=== PATIENT | female | born 1985 | race African-American/Black ===

== ENCOUNTER 2019-07-03 09:35 | Outpatient (CLI) | payer BC, SELFPAY ==
--- NOTE | ~2019-07-03 | US_ITS ---
EXAMINATION: US OB <= 14 weeks fetus, US OB <= 14 wk fetus add gest DATE: 07/03/2019 10:05 INDICATION: First trimester dating TECHNIQUE: Real-time pelvic transabdominal and transvaginal ultrasound was performed. COMPARISON: None. FINDINGS: The uterus measures 12.6 x 8.1 x 8.9 cm. There are two intrauterine gestational sacs separ ated by a thick membrane. A yolk sac is identified in each gestational sac. There is no free fluid in the pelvis. Fetus A: heart motion is identified measuring 173 beats per minute (bpm) by M-mode Doppler. The crown rump length measures 1.8 cm , which correlates with an estimated gestational age of 8 we eks and 2 day(s) (+/-) 5 day(s). Fetus B: heart motion is identified measuring 171 beats per minute (bpm) by M-mode Doppler. The crown rump length measures 1.8 cm , which correlates with an estimated gestational age of 8 we eks and 2 day(s) (+/-) 5 day(s). IMPRESSION: 1. Findings consistent with live dichorionic, diamniotic intrauterine with an estimated ges tational age of 8 weeks and 2 day(s) (+/-) 5 day(s) and an estimated delivery date of 02/10/2020. Reviewed, dictated and finalized at location A. IMPRESSION: 1. Findings consistent with live dichorionic, diamniotic intrauterine with an estimated gestational age of 8 weeks and 2 day(s) (+/-) 5 day(s) and a n estimated delivery date of 02/10/2020.
== END 2019-07-03 09:36 ==
PROVIDERS: Visit Provider Obstetrics & Gynecology
DX: Z34.91 Encounter for supervision of normal pregnancy, unspecified, first trimester (principal); Z3A.08 8 weeks gestation of pregnancy
CPT/HCPCS: 76801; 76802

== ENCOUNTER 2019-08-20 11:44 | Outpatient (RCR) | payer BC, MEDICAID, SELFPAY ==
[2019-08-20 12:20] LABS: Basophils Percent Auto 0.4 % (0.2-1.2); Eosinophils Percent Auto 0.6 % (0-4.4); Hematocrit 31.4 % (37.0-47.0); Immature Granulocyte Absolute 0.03 K/mm3 (0.00-0.031); Immature Granulocyte Percent A 0.4 % (0-0.5); Lymphocytes Absolute Auto 1.47 K/mm3 (0.9-3.2); Lymphocytes Percent Auto 21.6 % (18.3-44.2); Mean Corpuscular Hemoglobin 33.2 pg (26-34); Mean Corpuscular Volume 94.9 fl (80-100); Mean Platelet Volume 10.1 fl (7.4-10.4); Monocytes Absolute Auto 0.6 K/mm3 (0.1-0.6); Monocytes Percent Auto 9.1 % (2.6-8.5); Neutrophils Absolute Auto 4.6 K/mm3 (1.3-6.7); Neutrophils Percent Auto 67.9 % (45.5-73.1); Platelet Count Result 201 k/mm3 (150-375); Red Blood Count 3.31 M/mm3 (4.2-5.4); Red Cell Distribution Width 12.7 % (11.5-14.5); White Blood Count 6.8 K/mm3 (4.5-10.0)
[2019-08-20 12:25] LABS: Hemoglobin A1C 4.4 % (<5.7)
[2019-08-20 13:01] LABS: Hepatitis B Surface Antigen Negative (Negative); Rubella IgG Antibody 20.8 IU/ML
[2019-08-20 13:09] LABS: HIV 1/2 Ab P24 Ag Result Negative (Negative)
[2019-08-20 13:15] LABS: Vitamin D 25 Hydroxy 23.6 ng/mL
[2019-08-21 10:00] LABS: Rapid Plasma Reagin Non-Reactive (NonReactive)
== END 2019-11-18 23:59 | disposition home or self-care (01) ==
LOC: ANHLAB 11:44
PROVIDERS: PCP Family Medicine; Visit Provider Obstetrics & Gynecology
DX: Z11.4 Encounter for screening for human immunodeficiency virus [HIV] (principal)
CPT/HCPCS: 36415; 82306; 83036; 85025; 86592; 86703; 86762; 87340; G0432

== ENCOUNTER 2019-09-18 11:48 | Outpatient (RCR) | payer BC, OTHER, SELFPAY | END 2019-12-17 23:59 | disposition home or self-care (01) | LOC: ANHLAB 11:48 | PROVIDERS: PCP Family Medicine; Visit Provider Obstetrics & Gynecology | DX: Z36.9 Encounter for antenatal screening, unspecified (principal) | CPT/HCPCS: 36415; 85461 ==

== ENCOUNTER 2020-01-18 17:29 | Inpatient (IN) | payer BC, OTHER, SELFPAY ==
[2020-01-18] VITALS (52 sets, daily range): BP systolic 80–142; BP diastolic 24–86; PULSE 75–125; TEMP 36.7–36.9; O2SAT 99–100; BMI 34.8
--- NOTE | 2020-01-18 18:16 | WPDANESEPP ---
Anes - Eval Pre Procedure Procedure: Labor epidural Date/Time: 01/18/20 18:16 Surgeon: Alley Pre Op Diagnosis: Abd pain with contractions Patient Data Age: 34 Gender: F Height: Weight: Last Vital Signs Pulse 108 H 01/18/20 18:01 BP 119/79 01/18/20 18:01 Allergies Allergy/AdvReac Type Severity Reaction Status Date / Time No Known Allergies Allergy Unverified 05/30/17 13:22 Home Medications Medication Instructions Recorded Confirmed Type PNV cmb#95-ferrous fumarate-FA 1 tablet PO DAILY 01/15/20 01/15/20 History [] docusate sodium [Colace] 100 mg PO DAILY 01/15/20 01/15/20 History ergocalciferol (vitamin D2) 1,250 mcg PO WEEKLY 01/15/20 01/15/20 History [Vitamin D2] ferrous sulfate [Iron (ferrous 325 mg PO DAILY 01/15/20 01/15/20 History sulfate)] valacyclovir [Valtrex] 500 mg PO DAILY 01/15/20 01/15/20 History Patient hx anesthesia problems: none Family hx anesthesia problems: none PMFSH Past Medical History Medical History (Updated 01/18/20 @ 18:18 by Gabriel Pendleton CRNA) Anemia Obesity and not yet delivered Family History Family History Father Diabetes mellitus Mother Hypertension Sibling Thyroid disease Social History Social History Substance use: never Gender identity (if verbalized by the patient): Female Spiritual care concerns: No Exam Day of Procedure 01/18/20 18:16 Patient weight: obese Neurological: alert and oriented
--- NOTE | 2020-01-18 18:30 | LDADM ---
This patient, Tessa Kim, was admitted to Labor/Delivery/Recovery 102 on 01/18/20 at 17:29. Plans for labor, pain management and were discussed with patient. Patient/family oriented to hospital policies and general routines including ID bracelet, bed and alarms, visiting hours, pain management, procedures, bathroom and other care routines, personal items, smoking policy, room service/diet and guest tray routines, security routines, and visiting hours. Patient/Family are encouraged to report perceived risks to care and to ask questions if they do not understand what they are told or what they should do. See OBIX for further documentation.
[2020-01-18 18:42] LABS: Basophils Percent Auto 0.6 % (0.2-1.2); Eosinophils Percent Auto 0.5 % (0-4.4); Hematocrit 35.8 % (37.0-47.0); Hemoglobin 12.7 g/dL (12.0-15.0); Immature Granulocyte Absolute 0.06 K/mm3 (0.00-0.031); Immature Granulocyte Percent A 0.9 % (0-0.5); Lymphocytes Absolute Auto 1.55 K/mm3 (0.9-3.2); Lymphocytes Percent Auto 24.1 % (18.3-44.2); Mean Corpuscular HGB Conc 35.5 g/dl (32-36); Mean Corpuscular Hemoglobin 34.7 pg (26-34); Mean Corpuscular Volume 97.8 fl (80-100); Monocytes Absolute Auto 0.7 K/mm3 (0.1-0.6); Monocytes Percent Auto 10.6 % (2.6-8.5); Neutrophils Absolute Auto 4.1 K/mm3 (1.3-6.7); Neutrophils Percent Auto 63.3 % (45.5-73.1); Platelet Count Result 176 k/mm3 (150-375); Red Blood Count 3.66 M/mm3 (4.2-5.4); Red Cell Distribution Width 12.2 % (11.5-14.5); White Blood Count 6.4 K/mm3 (4.5-10.0)
[2020-01-18 19:06] LABS: Glucose Point of Care 81 (65-105)
[2020-01-18] MEDS: LACTATED RINGERS 1,000 ML 125 ML IV CONT ×2 (19:45→21:35)
[2020-01-18] MEDS: OXYTOCIN 30 UNITS/NS 500 ML 30 UNITS/500 ML BAG IV CONT (19:45)
[2020-01-18 21:17] LABS: Glucose Point of Care 80 (65-105)
[2020-01-19] VITALS (60 sets, daily range): BP systolic 63–156; BP diastolic 37–130; PULSE 71–190; RESP 14–18; TEMP 36.2–37.1; O2SAT 95–100
[2020-01-19] MEDS: LACTATED RINGERS 1,000 ML 125 ML IV CONT (00:56)
--- NOTE | 2020-01-19 01:02 | PM.IMHP ---
H&P: HPI History of Present Illness Date/Time: 01/19/20 01:02 Chief complaint: abnormal dopplers Narrative: Tessa Kim is a 34 year old female A1 with di/di twins here from level 2 u/s today with abnormal dopplers for twin B so sent in for [facility]. Patient with slow progress and decelerations of twin B and some of twin A. Recommend to proceed with csection and patient agrees. also complicated by GDMA1. labs: O+, Rubella immune, PRP -,HepBAAg -, HIV -, GBS -. [facility] Past Medical History Medical History (Updated 01/19/20 @ 01:10 by Nneka Hager MD) Anemia Elective x 1 HSV (herpes simplex virus) infection (normal spontaneous vaginal delivery) x 5 Obesity and not yet delivered Family History Family History Father Diabetes mellitus Mother Hypertension Sibling Thyroid disease Social History Social History Smoking status: Never smoker Substance use: never Gender identity (if verbalized by the patient): Female Spiritual care concerns: No Meds Home Medications and Allergies Home Medications Medication Instructions Recorded Confirmed Type PNV cmb#95-ferrous fumarate-FA 1 tablet PO DAILY 01/15/20 01/15/20 History [] docusate sodium [Colace] 100 mg PO DAILY 01/15/20 01/15/20 History ergocalciferol (vitamin D2) 1,250 mcg PO WEEKLY 01/15/20 01/15/20 History [Vitamin D2] ferrous sulfate [Iron (ferrous 325 mg PO DAILY 01/15/20 01/15/20 History sulfate)] valacyclovir [Valtrex] 500 mg PO DAILY 01/15/20 01/15/20 History Allergies Allergy/AdvReac Type Severity Reaction Status Date / Time No Known Allergies Allergy Unverified 05/30/17 13:22 Vital Signs Vital Signs - 24 hr 01/18/20 17:50 01/18/20 18:01 01/18/20 18:55 Temperature 98.1 F Pulse Rate 115 H 108 H Blood Pressure 117/80 119/79 Pulse Oximetry 01/18/20 19:16 01/18/20 19:31 01/18/20 19:46 Temperature Pulse Rate 85 89 92 Blood Pressure 119/78 122/76 122/73 Pulse Oximetry 01/18/20 20:01 01/18/20 20:16 01/18/20 20:31 Temperature Pulse Rate 85 94 98 Blood Pressure 121/76 113/66 130/65 Pulse Oximetry 01/18/20 20:42 01/18/20 20:46 01/18/20 20:47 Temperature Pulse Rate 99 Blood Pressure 141/79 H Pulse Oximetry 100 100 01/18/20 20:49 01/18/20 20:52 01/18/20 20:55 Temperature Pulse Rate 107 H 110 H 104 H Blood Pressure 140/79 142/86 H 142/82 H Pulse Oximetry 99 01/18/20 20:57 01/18/20 20:58 01/18/20 21:01 Temperature Pulse Rate 93 99 Blood Pressure 134/76 127/77 Pulse Oximetry 99 01/18/20 21:02 01/18/20 21:04 01/18/20 21:07 Temperature Pulse Rate 94 89 Blood Pressure 135/66 129/68 Pulse Oximetry 99 100 01/18/20 21:10 01/18/20 21:12 01/18/20 21:14 Temperature Pulse Rate 108 H 121 H Blood Pressure 123/80 111/24 L Pulse Oximetry 100 01/18/20 21:16 01/18/20 21:17 01/18/20 21:19 Temperature Pulse Rate 104 H 104 H Blood Pressure 120/78 129/72 Pulse Oximetry 99 01/18/20 21:22 01/18/20 21:25 01/18/20 21:27 Temperature Pulse Rate 111 H 87 Blood Pressure 116/78 80/34 L Pulse Oximetry 99 100 01/18/20 21:28 01/18/20 21:31 01/18/20 21:32 Temperature Pulse Rate 78 Blood Pressure 92/60 L 116/67 Pulse Oximetry 100 01/18/20 21:34 01/18/20 21:37 01/18/20 21:40 Temperature Pulse Rate 83 101 H 85 Blood Pressure 119/67 112/62 106/74 Pulse Oximetry 99 01/18/20 21:42 01/18/20 21:43 01/18/20 21:46 Temperature Pulse Rate 104 H 101 H Blood Pressure 98/58 L 115/78 Pulse Oximetry 99 01/18/20 21:47 01/18/20 21:49 01/18/20 21:52 Temperature Pulse Rate 101 H Blood Pressure 119/73 Pulse Oximetry 100 100 01/18/20 21:57 01/18/20 22:02 01/18/20 22:17 Temperature Pulse Rate 112 H 125 H Bl
[2020-01-19] MEDS: ceFAZolin 2 GM/D5W 50 ML 2 GM/50 ML BAG IVPB (01:10)
--- NOTE | 2020-01-19 01:59 | P.OP_ITS ---
Procedure Note - Detailed Date of procedure: 01/19/20 Pre-op diagnosis: abnormal dopplers twin B Di/Di twins at 37 4/7 wks intolerance of labor GDMA1 Post-op diagnosis: same Procedure performed: primary LTCS Description of procedure: The patient is taken to the operating room and placed in the dorsal supine position with a leftward tilt. Once epidural anesthesia was deemed adequate she is prepped and draped in usual sterile fashion. The Pfannenstiel skin incision is made with a scalpel and carried down to the underlying layer of fascia. Fascia is nicked in the midline and extended laterally using Chan scissors. The rectus muscles are in the midline, the peritoneum was tented with a peon, and entered with Metzenbaum scissors. The bladder blade is placed and the vesicouterine peritoneum is grasped with a peon and entered with Metzenbaum. the lower uterine segment was incised with a scalpel and extended laterally using blunt traction. Membranes are ruptured on twin a and noted to have clear. Twin a is delivered blood patching the vertex the cord is clamped and cut and the handed to the waiting delivery nurse.Twin B membranes are ruptured and clear fluid is noted. Twin B has converted to breech presentation. The hips are grasped with my right hand and delivered to the scapula. The infant is rotated and the arms delivered spontaneously. The infant is extended on the abdomen and the head is delivered. Nuchal cord x2 was reduced the cord was clamped and cut and the handed to the waiting the OB nurse. The cord from both placentas is taken for cord blood and gases. The placentas are removed using manual traction. The uterus is cleared of all clots and debris and left in situ. The uterine incision was closed using 0 Monocryl in a running locked fashion. Same suture was used to imbricate and obtain hemostasis in the right angle. The gutters were irrigated. The incision again inspected and noted to be hemostatic. The fascia was then c losed using 0 Vicryl in a running fashion. The skin was closed using 4 0 Vicryl in a subcuticular fashion after Bovie cautery is used for hemostasis in the subcutaneous tissues the bandage is placed over the incision. Sponge instrument needle counts are correct per the OR staff. Anesthesia: epidural Surgeon: Nneka Hager MD Estimated blood loss (mL): 500 Drains: Yes (beltre) Packing: No Pathology: yes (placentas) Complications: No immediate complications Condition: stable Disposition: floor Findings: Twin A-female 5#2oz with 8/9 Apgars Vertex Twin B-male 4#10oz with 8/9 Apgars Breech with nuchal cord x 2 normal appearing tubes, ovaries, and uterus
--- NOTE | 2020-01-19 02:10 | PM.OBDSVD ---
DS: Admitting Diagnosis Admitting Diagnosis Admitting Diagnosis: abnormal dopplers twin B, Di/di twins at 37 3/7 wks, GDMA1 DS: Discharge Diagnosis Discharge Diagnosis (1) delivery delivered: Code(s): O82 - Encounter for delivery without indication Status: Acute (2) 37 or more weeks gestation of : Status: Acute (3) Dichorionic diamniotic twin gestation: Code(s): O30.049 - Twin , dichorionic/diamniotic, unspecified trimester Status: Acute (4) intolerance to labor, delivered, current hospitalization: Code(s): O77.9 - Labor and delivery complicated by stress, unspecified Status: Acute OB - DS: Summary OB Procedures : NST and Ultrasound OB Procedures Intrapartum: low cervical, transverse OB Procedures: : None Peripartum Data Delivery Method: Section Procedures: Procedures Operation Date: 01/19/20 00:50 <No data on this case meets the specified criteria> complications: none Status at Discharge Functional status at discharge: independent ambulation Overall status at discharge: patient is progressing back to baseline Time Spent with Patient Time attestation: Total time spent providing and/or coordinating discharge services: DS: Data Data Completed and Pending Labs on day of discharge: Labs from last 24 hours 01/18/20 01/18/20 01/18/20 21:12 19:01 18:35 WBC RBC Hgb Hct MCV MCH MCHC RDW Plt Count MPV Immature Gran % (Auto) Neut % (Auto) Lymph % (Auto) [place] % (Auto) Eos % (Auto) Baso % (Auto) Lymph # (Auto) [place] # (Auto) Eos # (Auto) Baso # (Auto) Abs Immat Gran (auto) Absolute Neuts (auto) Absolute Nucleated RBC Nucleated RBC % POC Capillary Glucose 80 81 RPR Blood Type O Positive Antibody Screen Negative 01/18/20 01/18/20 18:35 18:35 WBC 6.4 RBC 3.66 L Hgb 12.7 Hct 35.8 L MCV 97.8 MCH 34.7 H MCHC 35.5 RDW 12.2 Plt Count 176 MPV 10.0 Immature Gran % (Auto) 0.9 H Neut % (Auto) 63.3 Lymph % (Auto) 24.1 [place] % (Auto) 10.6 H Eos % (Auto) 0.5 Baso % (Auto) 0.6 Lymph # (Auto) 1.55 [place] # (Auto) 0.7 H Eos # (Auto) 0.0 Baso # (Auto) 0.0 Abs Immat Gran (auto) 0.06 H Absolute Neuts (auto) 4.1 Absolute Nucleated RBC 0.0 Nucleated RBC % 0.0 POC Capillary Glucose RPR Pending Blood Type Antibody Screen Discharge Plan Discharge Attending physician on discharge: Nneka Hager Discharging Clinician: Nneka Hager Anticipated Discharge Date/Time: 01/22/20 07:11 Patient Disposition: Home, Self-Care Activity: may shower, may drive after 2 weeks and pelvic rest Diet: regular Discharge Instructions: Education: Mom and Baby Guide Given to: Mother Follow-Up: Call your delivering provider's office for an appointment to be seen in: 1 Week Mom and baby should come to the [facility] for the follow-up appointment. Appointment Date/Time: January 23, 2020 at 10:00 am What to expect at your follow-up visit: Physical Assessment Call [phone] if you are unable to keep your appointment time. BREAST CARE: * Wear a snug supportive bra. * For engorgement discomfort: Breast Feeding: * Apply warm moist washcloths * Express milk as needed to relieve engorgement * Wear loose clothing * For sore nipples: * Identify correct latch-on * Apply warm moist washcloths before and after nursing * Air dry nipples after nursing * May apply Lansinoh cream to nipples ABDOMINAL INCISION: (if applicable) * Allow incision to air dry * Do NOT use lotions for powders on your incision * When showering, allow soap and water to run over the incision, but do not wash incision EPISIOTOMY/PERINEAL
[2020-01-19] MEDS: fentaNYL CITRATE INJ (*CRX) 100 MCG/2 ML VIAL 50 MCG IV PUSH (03:34)
--- NOTE | 2020-01-19 05:38 | PC.NURSE ---
pt requested medication for pain at 333. she was given 50 mcg of fentanyl, but requested the higher dose after pain had not been relieved. pt rating pain still at 6/10 so an extra 50 mcg of fentanyl was administered from the same vial.
[2020-01-19] MEDS: KETOROLAC 30 MG/ML VIAL (*BKC) IV PUSH (05:44)
[2020-01-19] MEDS: HYDROcodone/acetaminophen (*CRX) 10-325 MG TABLET 1 TAB PO ×2 (05:45→19:31)
[2020-01-19] MEDS: MULTIVIT/MIN/PREN/FOL AC/IRON TABLET 1 TAB PO (07:23)
[2020-01-19] MEDS: DOCUSATE SODIUM 100 MG CAPSULE PO (07:23)
[2020-01-19 08:34] LABS: Rapid Plasma Reagin Non-Reactive (NonReactive)
--- NOTE | 2020-01-19 08:40 | PC.NURSE ---
Consulted with patient, mother states female is latching with good draws and occasional swallowing noted, male infant has not latched since . Mother states she has breastfed 5 other children without issue. Discussed and the 37 week , establishing may have its own unique set of circumstances due to their immaturity. infants may be less alert, have less stamina and may have issues with latch, suck and swallow. With the possible inability to have a vigorous suck swallow, infants may not be adequately stimulating mother and/or able to have adequate milk transfer. Pumping should be considered for additional stimulation and to offer EBM as part of supplement if needed. Discussed twins and the importance for mother to understand both infants will have their own abilities: suck and feeding patterns that may not match. Some mothers prefer to breastfeed separately to give each her full individualized attention during to assist with effective latching. Keeping infants on a feeding schedule may be difficult, but it is suggested to feed infants in sequence to allow rest time for mother between feedings. Different approaches to switching infants to breast, by feeding or day. This will help with stimulate a good milk supply. Nipple care is important, good instruction on mother?s comfort is nunes to successful . Freq and effective are the keys to building a good milk supply. Extra fluids and and/or food is not necessary. Mother should drink to thirst and eat to hunger, including nutritious choices. Assisted with male infant to breast. Reviewed positioning/alignment, holding breast and asymmetrical latch on. Infant was able to latch correctly. was sleepy and made no effort to attempt to latch with 10 minute attempt. Discussed infant requires supplementation at this time, with no successful feeding since . Parents are comfortable with supplementing. Plan will be to attempt each to breast, then supplement and mother will pump.
[2020-01-19] MEDS: KCL 20 MEQ/D5/0.45% SOD CHL 1,000 ML 125 ML IV CONT (09:31)
--- NOTE | 2020-01-19 11:00 | PC.NURSE ---
Breast pump provided due to near term twins/ineffective feeding. Instructions given on breast pump care and usage, pumping schedule, nipple care, and collection and storage of breast milk. Encouraged [id number], breast massage and manual expression to stimulate supply. Assessed patient for correct flange size, placement and draw. Patient verbalizes and demonstrates understanding of instructions.
[2020-01-19] MEDS: IBUPROFEN 600 MG TABLET PO (19:30)
[2020-01-20 01:00] VITALS: BP 103/68; PULSE 66; RESP 18; TEMP 36.7; O2SAT 100
[2020-01-20] MEDS: IBUPROFEN 600 MG TABLET PO ×4 (03:18→23:49)
[2020-01-20] MEDS: HYDROcodone/acetaminophen (*CRX) 10-325 MG TABLET 1 TAB PO ×4 (03:19→23:16)
[2020-01-20 05:29] LABS: Basophils Percent Auto 0.5 % (0.2-1.2); Eosinophils Absolute Auto 0.1 K/mm3 (0-0.3); Eosinophils Percent Auto 0.9 % (0-4.4); Hematocrit 30.8 % (37.0-47.0); Hemoglobin 10.7 g/dL (12.0-15.0); Immature Granulocyte Absolute 0.07 K/mm3 (0.00-0.031); Immature Granulocyte Percent A 0.9 % (0-0.5); Lymphocytes Absolute Auto 1.87 K/mm3 (0.9-3.2); Lymphocytes Percent Auto 24.4 % (18.3-44.2); Mean Corpuscular HGB Conc 34.7 g/dl (32-36); Mean Corpuscular Hemoglobin 34.3 pg (26-34); Mean Corpuscular Volume 98.7 fl (80-100); Mean Platelet Volume 10.3 fl (7.4-10.4); Monocytes Absolute Auto 0.7 K/mm3 (0.1-0.6); Monocytes Percent Auto 8.9 % (2.6-8.5); Neutrophils Absolute Auto 4.9 K/mm3 (1.3-6.7); Neutrophils Percent Auto 64.4 % (45.5-73.1); Platelet Count Result 149 k/mm3 (150-375); Red Blood Count 3.12 M/mm3 (4.2-5.4); Red Cell Distribution Width 12.3 % (11.5-14.5); White Blood Count 7.7 K/mm3 (4.5-10.0)
[2020-01-20 07:30] VITALS: BP 95/62; PULSE 65; RESP 16; TEMP 36.8; O2SAT 98
--- NOTE | 2020-01-20 08:00 | PC.NURSE ---
PT introductions made and plan of care discussed per post op c section, pain management, breast/bottle feeding, daily care activities. PT verbalized understanding of such care.
--- NOTE | 2020-01-20 09:12 | WPDANLDNPN2 ---
Anes-Prog Note L&D-Neuraxial Date/Time: 01/20/20 09:12 Neuraxial medications: epidural PF morphine Opiod-related complaints: none Patient feedback: Patient satisfied with post-operative pain management.
--- NOTE | 2020-01-20 09:12 | WPDANLDPN2 ---
Anes-Prog Note L&D Date/Time: 01/20/20 09:12 Comfortable throughout: labor and section Neuraxial method: epidural Epidural/Spinal procedure site: clean & non-tender Neuro status: Neuro function grossly intact. Vital Signs: Last Vital Signs Temp 36.8 C 01/20/20 07:30 Pulse 65 01/20/20 07:30 Resp 16 01/20/20 07:30 BP 95/62 L 01/20/20 07:30 Pulse Ox 98 01/20/20 07:30 Pain score (VAS): 0 I/O: Intake & Output 01/19/20 01/20/20 01/20/20 23:59 07:59 15:59 Intake Total 360 900 Output Total 1500 Balance 360 -600 Patient feedback: Patient satisfied with anesthetic care.
[2020-01-20] MEDS: SIMETHICONE 80 MG TAB.CHEW PO ×3 (09:48→17:55)
[2020-01-20] MEDS: MULTIVIT/MIN/PREN/FOL AC/IRON TABLET 1 TAB PO (09:48)
[2020-01-20] MEDS: DOCUSATE SODIUM 100 MG CAPSULE PO ×2 (09:49→17:55)
[2020-01-20 09:50] VITALS: PULSE 65; RESP 16; O2SAT 98
[2020-01-20] MEDS: HYDROcodone/acetaminophen (*CRX) 5-325 MG TABLET 1 TAB PO (09:50)
--- NOTE | 2020-01-20 11:30 | PC.NURSE ---
Consult with pt., mother reports she is independently attempting each to breasts for a few minutes, FOB will then supplement while mother pumps. Mother is concerned she does not have milk to use as part of supplement. Reviewed milk should transition in within a few days, beginning slowly and increasing each day. Discussed self expression a few minutes before regular pumping.
--- NOTE | 2020-01-20 15:46 | PM.OBPNVD ---
OB - PN: Subj Subjective Date/time seen: 01/20/20 15:46 Doing okay pain okay with prn meds desires home in am. OB - PN: Obj Data Labs CBC & Chem 7: 01/20/20 04:21 Labs: Laboratory Results - last 24 hr 01/20/20 04:21 WBC 7.7 RBC 3.12 L Hgb 10.7 L Hct 30.8 L MCV 98.7 MCH 34.3 H MCHC 34.7 RDW 12.3 Plt Count 149 L MPV 10.3 Immature Gran % (Auto) 0.9 H Neut % (Auto) 64.4 Lymph % (Auto) 24.4 [place] % (Auto) 8.9 H Eos % (Auto) 0.9 Baso % (Auto) 0.5 Lymph # (Auto) 1.87 [place] # (Auto) 0.7 H Eos # (Auto) 0.1 Baso # (Auto) 0.0 Abs Immat Gran (auto) 0.07 H Absolute Neuts (auto) 4.9 Absolute Nucleated RBC 0.0 Nucleated RBC % 0.0 OB - PN A/P Assessment and Plan (1) Dichorionic diamniotic twin gestation: Code(s): O30.049 - Twin , dichorionic/diamniotic, unspecified trimester Status: Acute (2) 37 or more weeks gestation of : Status: Acute (3) delivery delivered: Code(s): O82 - Encounter for delivery without indication Status: Acute Assessment and Plan: continue with postop care. Time Spent With Patient Time: Total time spent is greater than 50% in coordination of care (as documented) at patient's floor/unit and/or counseling patient: Exam GI: Other: incision clean dry and intact
[2020-01-20 19:31] VITALS: BP 114/75; PULSE 85; RESP 18; TEMP 37; O2SAT 100
[2020-01-20] MEDS: MINERAL OIL 30 ML UDC (19:38)
[2020-01-21 07:30] VITALS: BP 123/75; PULSE 90; RESP 16; TEMP 37.6; O2SAT 99
--- NOTE | 2020-01-21 07:30 | PC.NURSE ---
PT introductions made and plan of care discussed per post op c section, pain management, breast /bottle feeding, daily care activities. PT verbalized understanding of such care.
--- NOTE | 2020-01-21 07:45 | PM.OBPNVD ---
OB - PN: Subj Subjective Date/time seen: 01/21/20 07:45 Patient comments: no complaints and pain well controlled baby status: doing well OB - PN: Obj Data Labs CBC & Chem 7: 01/20/20 04:21 OB - PN A/P Plan day: 2 Plan: routine care Time Spent With Patient Time: Total time spent is greater than 50% in coordination of care (as documented) at patient's floor/unit and/or counseling patient: Exam GI: Inspection: incision (c/d/i) : Bimanual exam- vagina & uterus: other (Uterus firm, nt @U)
--- NOTE | 2020-01-21 09:10 | WPDANLDPN2 ---
Anes-Prog Note L&D Date/Time: 01/21/20 09:10 Comfortable throughout: labor and section Neuraxial method: epidural Epidural/Spinal procedure site: clean & non-tender Neuro status: Neuro function grossly intact. Cardiovascular status: normal Respiratory status: normal Airway patency: baseline Mental status: baseline Post-Op hydration status: normal Vital Signs: Last Vital Signs Temp 37.0 C 01/20/20 19:31 Pulse 85 01/20/20 19:31 Resp 18 01/20/20 19:31 BP 114/75 01/20/20 19:31 Pulse Ox 100 01/20/20 19:31 Pain score (VAS): 0 Post-procedural complaints: none Patient feedback: Patient satisfied with anesthetic care.
--- NOTE | 2020-01-21 09:11 | WPDANLDNPN2 ---
Anes-Prog Note L&D-Neuraxial Date/Time: 01/21/20 09:11 Neuraxial medications: epidural PF morphine Opiod-related complaints: none Patient feedback: Patient satisfied with post-operative pain management.
[2020-01-21] MEDS: SIMETHICONE 80 MG TAB.CHEW PO ×2 (09:44→12:51)
[2020-01-21] MEDS: HYDROcodone/acetaminophen (*CRX) 10-325 MG TABLET 1 TAB PO ×5 (09:44→22:17)
[2020-01-21 09:45] VITALS: PULSE 90; RESP 16; O2SAT 99
[2020-01-21] MEDS: IBUPROFEN 600 MG TABLET PO ×3 (09:45→22:17)
[2020-01-21] MEDS: MULTIVIT/MIN/PREN/FOL AC/IRON TABLET 1 TAB PO (09:45)
[2020-01-21] MEDS: DOCUSATE SODIUM 100 MG CAPSULE PO ×2 (09:45→15:47)
--- NOTE | 2020-01-21 13:15 | PC.NURSE ---
consult with pt., mother reports she continues to attempt each to breast, will then supplement and pump. Mother reports female infant is making good attempts and will freq latch for short bursts, male infant is sleepy and will not latch. Both will eagerly bottle feed without issues. Mother is pumping without difficulties or discomfort.
[2020-01-21 19:00] VITALS: BP 108/65; PULSE 86; RESP 16; TEMP 36.8
[2020-01-22] MEDS: HYDROcodone/acetaminophen (*CRX) 10-325 MG TABLET 1 TAB PO ×2 (01:30→05:20)
[2020-01-22] MEDS: IBUPROFEN 600 MG TABLET PO (05:20)
[2020-01-22 07:40] VITALS: BP 110/60; PULSE 75; RESP 16; TEMP 36.8; O2SAT 99
[2020-01-22] MEDS: MULTIVIT/MIN/PREN/FOL AC/IRON TABLET 1 TAB PO (09:55)
[2020-01-22] MEDS: DOCUSATE SODIUM 100 MG CAPSULE PO (09:55)
[2020-01-22] MEDS: HYDROcodone/acetaminophen (*CRX) 5-325 MG TABLET 1 TAB PO (09:55)
--- NOTE | 2020-01-22 10:30 | PC.NURSE ---
Mother is able to independently latch infants with appropriate positioning/alignment. Female will have good efforts of latch and suckling. Male infant is attempted most feedings, he makes a good effort to latch with no suckling noted. Mother denies any nipple discomfort, is feeding as required and waking to feed if needed. Both infants are supplemented after each feeding for jaundice and ineffective feeding. Both infants are eagerly bottle feeding. Mother continues to pump after each feeding to stimulate milk supply. Both are currently meeting outcomes for weight, output, jaundice and feeding frequencies. Mother states she feels confident to continue current feeding plan at home. Reviewed transition to breast milk, signs of adequate intake, and engorgement/relief. Instructed to call ICP if intake/output less than required. Reviewed regular medications mother is taking. Information provided per [place]. Reviewed community resources on the [employer] website and in the Mom/Baby guide. Information on outpatient services provided. Mother has no further questions at this time. Discussed signs when infants may be ready to increase supplementation of EBM/formula and when they be ready to decrease/discontinue supplement. Advised not to discontinue until seen by ICP for further evaluation.
--- NOTE | 2020-01-22 11:46 | PC.NURSE ---
Patient instructed on viewing the discharge video Mother & Baby Care, The First Two Weeks . Patient was given the opportunity and encouraged to ask questions. Patient verbalized understanding of information shared and has been given the mother/baby guide for home reference.
[2020-01-23 11:07] VITALS: BP 105/62; PULSE 71; RESP 18; TEMP 36.9
== END 2020-01-22 13:58 | disposition home or self-care (01) | DRG 787 ==
LOC: ANHLDR 01-22 19:38 → ANHOB2 01-22 19:38
PROVIDERS: Admitting Provider Obstetrics & Gynecology Gynecology; PCP Family Medicine; Visit Provider Obstetrics & Gynecology
PROC: 10D00Z1 Extraction of Products of Conception, Low, Open Approach (ICD-10-PCS; CPT 59514; principal; 2020-01-19 00:50)
DX: O36.8332 Maternal care for abnormalities of the fetal heart rate or rhythm, third trimester, fetus 2 (principal); O98.32 Other infections with a predominantly sexual mode of transmission complicating childbirth; O30.043 Twin pregnancy, dichorionic/diamniotic, third trimester; Z37.2 Twins, both liveborn; Z3A.37 37 weeks gestation of pregnancy; O36.8331 Maternal care for abnormalities of the fetal heart rate or rhythm, third trimester, fetus 1; O32.1XX2 Maternal care for breech presentation, fetus 2; O69.81X2 Labor and delivery complicated by cord around neck, without compression, fetus 2; O99.214 Obesity complicating childbirth; E66.9 Obesity, unspecified; O99.02 Anemia complicating childbirth; D64.9 Anemia, unspecified; A60.09 Herpesviral infection of other urogenital tract
CPT/HCPCS: 36415; 85025; 86592; 86850; 86900; 86901; 88307; A9270; J0131; J0690; J1885; J2274; J2370; J2405; J2590; J2795; J3010; J3480; J7120